=== PATIENT | female | born 1980 | race American Indian/Alaskan Native ===

== ENCOUNTER 2018-12-06 00:25 | Emergency (ER) | payer SELFPAY ==
[2018-12-06 00:43] VITALS: RESP 20; O2SAT 100
--- NOTE | 2018-12-06 02:01 | C.PDOC ---
History Of Present Illness 38 year old female presents to the ED c/o bilateral thigh, left knee and right hip pain. Patient [place], patient reports she hyperextended her right thigh. Patient c/o left knee, left tib/randhawa pain as well. Patient denies LOC, head injury, visual changes. weakness, numbness. Time Seen by Provider: 12/06/18 00:47 Chief Complaint (Nursing): Lower Extremity Problem/Injury History Per: Patient History/Exam Limitations: no limitations Onset/Duration Of Symptoms: Hrs Current Symptoms Are (Timing): Still Present Recent travel outside of the [place]: No Additional History Per: Patient - Knee Description Of Injury: Fell Past Medical History Reviewed: Historical Data, Nursing Documentation, Vital Signs Vital Signs: Last Vital Signs Temp 98.4 F 12/06/18 00:37 Pulse 75 12/06/18 00:37 Resp 20 12/06/18 00:37 BP 112/80 12/06/18 00:37 Pulse Ox 100 12/06/18 00:37 - Medical History PMH: Asthma, Rheumatoid Arthritis Surgical History: No Surg Hx Family History: States: Unknown Family Hx - Social History Hx Alcohol Use: Yes Hx Substance Use: No - Immunization History Hx Tetanus Toxoid Vaccination: Yes Review Of Systems Constitutional: Negative for: Fever, Chills Respiratory: Negative for: Cough, Shortness of Breath Gastrointestinal: Negative for: Nausea, Vomiting, Abdominal Pain Musculoskeletal: Positive for: Leg Pain, Other (hip pain) Skin: Negative for: Rash Neurological: Negative for: Weakness, Numbness, Headache, Dizziness Physical Exam - Physical Exam Appears: Non-toxic, No Acute Distress Skin: Normal Color, Warm, Dry Head: Atraumatic, Normacephalic Eye(s): bilateral: Normal Inspection, PERRL, EOMI Neck: Normal ROM, No Midline Cervical Tenderness, Supple Back: No Vertebral Tenderness Extremity: Normal ROM, Tenderness (bilateral thighs anterior aspect, right hip, left knee and left tib/randhawa area), Capillary Refill (< 2 seconds), No Swelling, Other (upper extremities no injuries, ankle and foot normal) Pulses: Left Dorsalis Pedis: Normal, Right Dorsalis Pedis: Normal Neurological/Psych: Oriented x3, Normal Speech, Normal Cognition, Normal Motor, Normal Sensation Gait: Unable To Assess ED Course And Treatment O2 Sat by Pulse Oximetry: 100 (ON RA) Pulse Ox Interpretation: Normal Progress Note: Plan: - Left tib/fib X-Ray. - Left knee X-ray. - Hip X-ray. - Motrin 600 mg PO. Patient reports improvement to her pain after medication was given. X-ray ordered and no acute fx or dislocation seen. Patient's imaging results were discussed and Pt is fully ambulatory in ed at discharge. Pt advised to follow up with PMD. Disposition Counseled Patient/Family Regarding: Diagnosis, Need For Followup, Rx Given - Disposition Referrals: [facility] [Outside] Disposition: HOME/ ROUTINE Disposition Time: 02:09 Condition: STABLE Additional Instructions: Tylenol / Aleve or advil for pain Leg elevation/ May apply ICE to area Follow up with PMD Return to ER if worse Instructions: Muscle and Bone Pain (DC) Forms: [employer] ([employer]), Work Excuse - Clinical Impression Clinical Impression: Sprain of left knee/leg, Bilateral thigh pain - PA / HUMANE AGENT / Resident Statement MD/DO has reviewed & agrees with the documentation as recorded. - Scribe Statement The provider has reviewed the documentation as recorded by the Scribe Vishal Ulloa All medical record entries made by the Scribe were at my direction and personally dictated by me. I have reviewed the chart and agree that the record accurately reflects my personal performance of the history, physical exam, medical decision making, and the department course for this patient. I have also personally directed, reviewed, and agree with the discharge instructions and disposition.
[2018-12-06 02:30] VITALS: BP 118/76; PULSE 74; TEMP 98.2
--- NOTE | 2018-12-06 09:34 | RAD ---
Pelvis and bilateral hips two views History: Pain and fall. COMPARISON: None available. FINDINGS: No evidence of acute displaced fracture or dislocation. Bilateral hip joints are preserved. Pubic symphysis and bilateral SI joints are preserved. Impression: Negative acute. If pain persists, consider MRI.
--- NOTE | 2018-12-06 09:44 | RAD ---
Left tibia and fibula two views History: Pain. Fall. COMPARISON: None available. FINDINGS: No evidence of acute displaced fracture or dislocation. Impression: Negative acute. If pain persists, consider MRI.
--- NOTE | 2018-12-06 09:48 | RAD ---
Left knee three views History: Pain. Fall. COMPARISON: None. FINDINGS: No evidence of acute displaced fracture or dislocation. No significant joint effusion. Impression: Study somewhat limited secondary to suboptimal patient positioning and technique. Negative acute. If pain persists, consider MRI.
== END 2018-12-06 02:31 | disposition home or self-care (01) ==
LOC: C.ER 00:25
DX: S83.92XA Sprain of unspecified site of left knee, initial encounter (principal); W01.0XXA Fall on same level from slipping, tripping and stumbling without subsequent striking against object, initial encounter; Y92.522 Railway station as the place of occurrence of the external cause; M79.652 Pain in left thigh; M79.651 Pain in right thigh